=== PATIENT | female | born 1985 | race Caucasian/White ===

== ENCOUNTER 2016-11-25 06:37 | Inpatient (IN) | payer MEDICAID ==
[~2016-11-25] VITALS: Ht 157.5 cm; Wt 73.5 kg
[2016-11-25 06:45] VITALS: Ht 157.5 cm; Wt 73.5 kg
[2016-11-25 06:46] VITALS: BP 119/74; PULSE 74; RESP 18
[2016-11-25] MEDS ORDERED: PREN-6 PO (06:48)
[2016-11-25] MEDS ORDERED: LACTATED RINGER'S 1,000 ML IV SCH (07:04)
--- NOTE | 2016-11-25 07:13 | TRIAGE ---
OB Triage Datetime Report Generated by CPN: 11/25/2016 07:13 Datetime: 11/25/2016 07:11 Assessment Type: Admission Assessment Vaginal Bleeding: None Maternal Assessment Level of Consciousness: Fully Conscious DTR's/Clonus: DTRs 2+; No Clonus Headache: Denies Blurred Vision: No Respiratory Effort: Unlabored; Regular Rhythm; Equal Expansion Breath Sounds, Left: Clear and Equal Breath Sounds, Right: Clear and Equal Nausea/Vomiting: Denies RUQ Epigastric Pain: Denies Lower Extremities Edema: None Degree: None Upper Extremities Edema: None Degree: None Facial Edema: None Fall Risk Assessment History of Falling: (0) No Secondary Diagnosis: (0) No Ambulatory Aid: (0) Bedrest/Nurse Assist IV Therapy: (0) No Gait: (0) Normal/Bedrest/Immobile Mental Status: (0) Oriented to Own Ability Fall Score: 0 Fall Risk Score Definition: No Risk: No action required Labor Evaluation Frequency: 1-2 Duration (sec)2399: 50-90 Quality: Mild Pattern: Normal: <= 5 Contractions in 10 Minutes Resting Tone [place]: Relaxed Contraction Comments: Pain Assessment Pain Scale: 5 Pain Presence: Intermittent Pain Type: Contraction Pain Location: Abdomen Pain Goal: 3 Membrane Status: Intact Datetime: 11/25/2016 07:08 Stage of : OB Triage Temperature Route: Oral Labor Evaluation Frequency: 1-2.5 Monitor Mode: External Duration (sec)2399: 60-80 Quality: Moderate Pattern: Normal: <= 5 Contractions in 10 Minutes Resting Tone [place]: Relaxed Heart Rate FHR Baseline Rate: 130 Monitor Mode: External US Variability: Moderate 6-25 bpm Accelerations: 15X15 Decelerations: None Category: Category I Pain Assessment Pain Scale: 5 Pain Presence: Intermittent Pain Type: Contraction Pain Location: Abdomen; Back Pain Goal: 5 Pain Relief Measures: Comfort Measures Datetime: 11/25/2016 07:00 Vaginal Exam Dilatation (cms): 4.5 Effacement (%): 90 Station: -2 Exam By: LIDIA Membrane Status: Bulging Vaginal Bleeding: None Cervix, Consistency: Soft Cervix, Position: Anterior Datetime: 11/25/2016 06:53 Assessment Type: Triage Maternal Assessment Level of Consciousness: Fully Conscious DTR's/Clonus: DTRs 2+; No Clonus Headache: Denies Blurred Vision: No Respiratory Effort: Unlabored; Regular Rhythm; Equal Expansion Nausea/Vomiting: Denies RUQ Epigastric Pain: Denies Lower Extremities Edema: None Upper Extremities Edema: None Facial Edema: None Fall Risk Assessment History of Falling: (0) No Secondary Diagnosis: (0) No Ambulatory Aid: (0) Bedrest/Nurse Assist IV Therapy: (0) No Gait: (0) Normal/Bedrest/Immobile Mental Status: (0) Oriented to Own Ability Fall Score: 0 Fall Risk Score Definition: No Risk: No action required Datetime: 11/25/2016 06:49 Time of Arrival: 11/25/2016 06:30 EGA: 39.5 Arrived By: Wheelchair Arrived From: Home Chief Complaint: CONTRACTIONS SINCE 1600 Movement: Present Contractions: Regular Time Contractions Began: 11/24/2016 16:00 Contractions: 5 MIN Rupture of Membranes: Denies Vaginal Bleeding: None Vaginal Discharge: Denies Recent Sexual Intercouse: Denies Abdominal Trauma: Not Applicable Patient Complaints: Contractions Time Provider Notified: 11/25/2016 07:03 Provider Notified: HARDIK Initial Plan: EFM, ASSESSMENT, CALL MD FOR ORDERS
[2016-11-25] MEDS ORDERED: AMPICILLIN 2 GM/NS (PMX) 100 ML ONE (07:18)
[2016-11-25] MEDS ORDERED: AMPICILLIN 2 GM/NS (PMX) 100 ML IV ONE (07:30)
[2016-11-25] MEDS ORDERED: CARBOPROST 250 MCG INJ IM PRN ×2 (07:30→14:00)
[2016-11-25] MEDS ORDERED: OXYTOCIN 30 UNITS/LR 500 ML IV PRN ×2 (07:30→14:00)
[2016-11-25] MEDS ORDERED: OXYTOCIN 30 UNITS/LR 500 ML IV SCH ×3 (07:30)
[2016-11-25] MEDS ORDERED: BUTORPHANOL 2 MG INJ IV PRN (07:30)
[2016-11-25] MEDS ORDERED: METHYLERGONOVINE 0.2 MG INJ IM PRN ×2 (07:30→14:00)
[2016-11-25] MEDS ORDERED: LIDOCAINE 1% (MPF) 30 ML INJ INJ PRN (07:30)
[2016-11-25] MEDS ORDERED: MISOPROSTOL 200 MCG TAB PR PRN ×2 (07:30→14:00)
[2016-11-25] MEDS ORDERED: LACTATED RINGER'S 1,000 ML IV PRN (08:00)
--- NOTE | 2016-11-25 08:16 | RADRPT ---
PROCEDURE: Obstetrical ultrasound, limited. CLINICAL INDICATION: Pelvic pain. TECHNIQUE: Multiple sonographic images of the pelvis were obtained using transabdominal technique . Images were obtained with carpenter scale and color Doppler. The images were reviewed on a PACS works tation. COMPARISON: No prior studies are available for comparison. FINDINGS: There is a single living intrauterine gestation with the fetus in a vertex presentation. hear t tones of 136 beats per minute are identified. The placenta is anterior in location, grade 2. The re is no evidence of placenta previa or abruption. Measurements were made in order to determine age. The results are as follows: BPD =9.61 cm HC =33.57 cm AC =37.37 cm FL =7.44 cm. Estimated gestational age of approximately 39 weeks and 2 days. The estimated date of delivery is 11/30/2016. The EFW = 3975 +/- 596 grams. Estimated weight percentage equals 81.5%. IMPRESSION: Single viable intrauterine gestation of approximately 39 weeks and 2 days, with an ultrasound TATY of 11/30/2016. .Jaime Becerra MD, MD Date Time Electronically viewed and signed by .Jaime Becerra MD, MD on 11/25/2016 08:16 .T/
[2016-11-25 08:35] LABS: BASOPHILS % 0.1 % (0.0-2.0); EOSINOPHILS % 0.4 % (0.0-7.0); HEMATOCRIT 35.6 % (37.0-47.0); HEMOGLOBIN 11.4 g/dl (12.0-16.0); LYMPHOCYTES # 0.9 10^3/ul (0.8-2.9); LYMPHOCYTES % 9.5 % (15.0-51.0); MEAN CORPUSCULAR VOLUME 87.5 fl (82.0-101.0); MEAN PLATELET VOLUME 12.2 fl (7.4-10.4); MONOCYTE # 0.6 10^3/ul (0.3-0.9); MONOCYTES % 6.5 % (0.0-11.0); NEUTROPHIL # 7.6 10^3/ul (1.6-7.5); NEUTROPHILS % 83.1 % (39.0-77.0); PLATELET COUNT 238 10^3/UL (140-415); RED BLOOD COUNT 4.07 10^6/ul (4.20-5.40); RED CELL DISTRIBUTION WIDTH 13.8 % (11.5-14.5); WHITE BLOOD COUNT 9.1 10^3/ul (4.8-10.8)
[2016-11-25 08:42] LABS: INR 0.87; PROTIME 11.8 Sec (12.2-14.2); PT RATIO 0.9
[2016-11-25 08:43] LABS: PARTIAL THROMBOPLASTIN TIME 25.8 Sec (25.0-35.0)
--- NOTE | 2016-11-25 11:22 | HP ---
Date/Time of Note Date/Time of Note DATE: 11/25/16 TIME: 11:21 OB - History Hx of Present : 5 Para: 4 Care: Good Care Ultrasounds: Normal mid trimester US Obstetrical Complications: None Medical Complications: None Past Family/Social History * Past Medical, Surgical, Family and Obstetric Histories reviewed from chart. OB Admission Exam Vital Signs Vital Signs Vital Signs Date Time Temp Pulse Resp B/P Pulse Ox O2 Delivery O2 Flow Rate FiO2 11/25/16 06:46 98.3 74 18 119/74 Room Air Physical Exam HEENT: WNL Heart: Rhythm Normal Lungs: Clear, Equal Abdomen: WNL Extremities: Normal Reflexes: Normal Cervical Dilatation: 8cm Effacement: 100% Station: -1 Amniotic Fluid: Clear Heart Rate: 130's Accelerations: Accelerations Present Decelerations: No Decelerations Varibility: Marked Contractions on Admission: 6-10 Minutes Apart Last 72 hours Lab Results CBC & BMP 11/25/16 07:26 OB Assessment/Plan Reason for admission: active labor Plan: Expectant Management KRISTIN DYE MD Nov 25, 2016 11:22
[2016-11-25] MEDS ORDERED: AMPICILLIN 1 GM/NS (PMX) 50 ML IV SCH (11:30)
--- NOTE | 2016-11-25 12:54 | LDN ---
Date/Time of Note Date/Time of Note DATE: 11/25/16 TIME: 12:53 Delivery Summary term preg NSD Placenta Delivered: Spontaneously Meconium: none Episiotomy: No Anesthesia type: None Estimated blood loss: 300 Sponge & Needle done & correct: Yes All needle counts correct: Yes Any foreign bodies felt in the: No Problems: KRISTIN DYE MD Nov 25, 2016 12:54
[2016-11-25] MEDS: LACTATED RINGER'S 1,000 ML IV* SCH ×2 (13:32→21:39)
[2016-11-25] MEDS ORDERED: IBUPROFEN 600 MG TAB ONE (13:36)
[2016-11-25] MEDS: IBUPROFEN 600 MG TAB PO SCH ×2 (13:42→17:27)
[2016-11-25] MEDS: OXYTOCIN 30 UNITS/LR 500 ML IV SCH ×2 (13:53→17:29)
[2016-11-25] MEDS ORDERED: BENZOCAINE 20% 56 ML SPRAY TOP PRN (14:00)
[2016-11-25] MEDS ORDERED: SENNA/DOCUSATE NA (8.6MG/50MG) TAB PO PRN (14:00)
[2016-11-25] MEDS ORDERED: DIPHENHYDRAMINE 25 MG CAP PO PRN (14:00)
[2016-11-25] MEDS ORDERED: MAGNESIUM HYDROXIDE 30ML CUP PO PRN (14:00)
[2016-11-25] MEDS ORDERED: WITCH HAZEL/GLYCERIN PAD PR PRN (14:00)
[2016-11-25] MEDS ORDERED: ZOLPIDEM 5 MG TAB PO PRN (14:00)
[2016-11-25] MEDS ORDERED: HYDROCODONE/APAP (5/325) TAB PO PRN (14:00)
[2016-11-25] MEDS ORDERED: ACETAMINOPHEN 325 MG TAB PO PRN (14:00)
[2016-11-25] MEDS ORDERED: LANOLIN 7 GM TUBE TOP PRN (14:00)
[2016-11-25 15:00] VITALS: PULSE 64; RESP 19
[2016-11-25 15:30] VITALS: BP 121/68; PULSE 63; RESP 19
[2016-11-25] MEDS ORDERED: IBUPROFEN 800 MG TAB PO SCH (18:00)
[2016-11-25 19:50] VITALS: BP 118/69; PULSE 80; RESP 18
[2016-11-26 00:45] VITALS: BP 121/65; PULSE 89; RESP 18
[2016-11-26] MEDS: IBUPROFEN 600 MG TAB PO SCH ×4 (00:49→17:39)
[2016-11-26 03:22] LABS: BARBITURATES Negative (NEGATIVE); BENZODIAZEPINES Negative (NEGATIVE); CANNABINOIDS Negative (NEGATIVE); COCAINE Negative (NEGATIVE); OPIATES Negative (NEGATIVE)
[2016-11-26 03:29] VITALS: BP 106/51; PULSE 72; RESP 18
[2016-11-26] MEDS: LACTATED RINGER'S 1,000 ML IV* SCH ×3 (05:32→21:32)
[2016-11-26 08:25] VITALS: BP 99/58; PULSE 76; RESP 19
[2016-11-26] MEDS ORDERED: INFLUENZA VIRUS VACCINE 0.5 ML SYG IM* ONE (10:00)
[2016-11-26 10:17] LABS: BASOPHILS % 0.1 % (0.0-2.0); EOSINOPHILS # 0.1 10^3/ul (0.0-0.5); EOSINOPHILS % 0.4 % (0.0-7.0); HEMATOCRIT 27.6 % (37.0-47.0); LYMPHOCYTES # 0.9 10^3/ul (0.8-2.9); LYMPHOCYTES % 7.8 % (15.0-51.0); MEAN CORPUSCULAR HEMOGLOBIN 28.8 pg (29.0-33.0); MEAN CORPUSCULAR HGB CONC 32.6 g/dl (32.0-37.0); MEAN CORPUSCULAR VOLUME 88.5 fl (82.0-101.0); MEAN PLATELET VOLUME 11.2 fl (7.4-10.4); MONOCYTE # 0.5 10^3/ul (0.3-0.9); MONOCYTES % 4.5 % (0.0-11.0); NEUTROPHIL # 10.4 10^3/ul (1.6-7.5); NEUTROPHILS % 86.9 % (39.0-77.0); PLATELET COUNT 216 10^3/UL (140-415); RED BLOOD COUNT 3.12 10^6/ul (4.20-5.40); RED CELL DISTRIBUTION WIDTH 14.1 % (11.5-14.5); WHITE BLOOD COUNT 11.9 10^3/ul (4.8-10.8)
--- NOTE | 2016-11-26 10:43 | DS ---
Date/Time of Note Date/Time of Note DATE: 11/26/16 TIME: 10:42 Discharge Summary Admission/Discharge Info Admit Date/Time Nov 25, 2016 at 07:05 Discharge Date/Time Discharge Diagnosis term preg Patient Condition: Stable Hospital Course unremarkable Home Meds Reported Medications Vits #93-Iron Fum-FA ( Formula) 1 Each Tablet, 1 TAB PO DAILY, TAB 11/25/16 Primary Care Provider Care Physician No Primary Pending Labs Laboratory Tests Test 11/26/16 00:55 11/26/16 09:44 Urine Opiates Screen Negative (NEGATIVE) Urine Barbiturates Negative (NEGATIVE) Urine Amphetamines Screen Negative (NEGATIVE) Urine Benzodiazepines Screen Negative (NEGATIVE) Urine Cocaine Screen Negative (NEGATIVE) Urine Cannabinoids Negative (NEGATIVE) White Blood Count 11.910^3/ul (4.8-10.8) Red Blood Count 3.1210^6/ul (4.20-5.40) Hemoglobin 9.0g/dl (12.0-16.0) Hematocrit 27.6% (37.0-47.0) Mean Corpuscular Volume 88.5fl (82.0-101.0) Mean Corpuscular Hemoglobin 28.8pg (29.0-33.0) Mean Corpuscular Hemoglobin Concent 32.6g/dl (32.0-37.0) Red Cell Distribution Width 14.1% (11.5-14.5) Platelet Count 44630^3/UL (140-415) Mean Platelet Volume 11.2fl (7.4-10.4) Neutrophils % 86.9% (39.0-77.0) Lymphocytes % 7.8% (15.0-51.0) Monocytes % 4.5% (0.0-11.0) Eosinophils % 0.4% (0.0-7.0) Basophils % 0.1% (0.0-2.0) Nucleated Red Blood Cells % 0.0/100WBC (0.0-0.0) Neutrophils # 10.410^3/ul (1.6-7.5) Lymphocytes # 0.910^3/ul (0.8-2.9) Monocytes # 0.510^3/ul (0.3-0.9) Eosinophils # 0.110^3/ul (0.0-0.5) Basophils # 0.010^3/ul (0.0-0.1) Nucleated Red Blood Cells # 0.010^3/ul (0.0-0.0) KRISTIN DYE MD Nov 26, 2016 10:43
[2016-11-26 15:00] VITALS: BP 101/52; PULSE 75; RESP 18
[2016-11-26 20:15] VITALS: BP 118/61; PULSE 76; RESP 18
[2016-11-27 04:15] VITALS: BP 99/66; PULSE 69; RESP 18
[2016-11-27] MEDS: IBUPROFEN 600 MG TAB PO SCH ×3 (05:37→11:57)
[2016-11-27 08:32] VITALS: BP 100/60; PULSE 79; RESP 18
[2016-11-27] MEDS ORDERED: VARICELLA VACCINE LIVE/PF 1,350 UNIT/0.5 ML ML SC* ONE (09:00)
[2016-11-27] MEDS ORDERED: MEASLES,MUMPS,RUBELLA VACCINE INJ SC* ONE (09:00)
[2016-11-27] MEDS ORDERED: DIPHTH/TET/ACEL PERTUSS (ADULT) 0.5 ML VIAL IM* ONE (09:00)
== END 2016-11-27 16:55 | disposition home or self-care (01) | DRG 775 ==
LOC: OBT 06:37 → L-D 06:40 → OBT 07:05 → L-D 07:05 → PP1 14:53
PROVIDERS: ADMIT Obstetrics & Gynecology; ATTEND Obstetrics & Gynecology
PROC: 10E0XZZ Delivery of Products of Conception, External Approach (ICD-10-PCS; principal; 2016-11-25)
DX: O80 Encounter for full-term uncomplicated delivery (principal); Z37.0 Single live birth; Z3A.39 39 weeks gestation of pregnancy
CPT/HCPCS: 76815; 80307; 85025; 85610; 85730; 86592; 86900; 86901; 87340; 90686; 90715; 90716; G0463; J0290; J0595; J2210; J2590; J7120